=== PATIENT | female | born 1960 | race Caucasian/White ===

== ENCOUNTER 2017-03-09 23:23 | Emergency (ER) | payer MEDICARE, OTHER ==
[~2017-03-09] VITALS: Ht 129.5 cm; Wt 73.9 kg
[2017-03-10] MEDS ORDERED: ASPIRIN CHEWABLE 81 MG TABLET. PO ONE
--- NOTE | 2017-03-10 00:08 | PHYS DOC ---
Past Medical History Past Medical History: High Cholesterol Past Medical History Chronic pain-arthritis Past Surgical History: Cholecystectomy, Hysterectomy, Tonsillectomy Past Surgical History Gastric bypass; right rotator cuff surgery Smoking: Quit Greater Than 1 Year Social History Narrative: Chronic methadone use for pain management Adult General Chief Complaint Chief Complaint: CHEST PAIN HPI HPI Patient is a 56 year old female who presents with chest pain. She lives in [place]. She states she was there only about 20 minutes playing [employer] when she was losing. She went out to her truck got in an argument with her spouse on the phone. She decided just to wait a little bit before she took off the drive back to [place] because she was very mad. She states she fell asleep at 22:10 PM and awakened at 2245 PM with mid chest pain. The pain is sharp, burning. It was attempted initially a 10 but now it is a 0. Did not take any medications for it. Did not radiate. No dizziness or syncope. No nausea vomiting. Some shortness of air with the pain. No recent long distance travel but does travel between [place] in [place] frequently. 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 She has a primary care doctor [place] and she states she had a stress test done one year ago. She does have positive family history for heart disease. Review of Systems Review of Systems Constitutional: Denies fever or chills Eyes: Denies change in visual acuity, redness, or eye pain HENT: Denies nasal congestion or sore throat Respiratory: Denies cough ; some shortness of breath with pain earlier-resolved Cardiovascular: SEe HPI GI: Denies abdominal pain, nausea, vomiting, bloody stools or diarrhea : Denies dysuria or hematuria Musculoskeletal: chronic back pain & joint pain. No calf pain, swelling, tenderness. Integument: Denies rash or skin lesions Neurologic: Denies headache, focal weakness or sensory changes Current Medications Current Medications Current Medications Medications (Trade) Dose Ordered Sig/Pradip Start Time Stop Time Status Last Admin Dose Admin Aspirin (Children'S Aspirin) 324 mg 1X ONCE 03/10/17 00:00 03/10/17 00:01 DC 03/09/17 23:58 324 MG Allergies Allergies Allergies Coded Allergies Type Severity Reaction Last Updated Verified Penicillins Allergy Unknown 03/09/17 Yes Physical Exam Physical Exam Constitutional: Well developed, well nourished, no acute distress, non-toxic appearance. HENT: Normocephalic, atraumatic, bilateral external ears normal, oropharynx moist, no oral exudates, nose normal. Eyes: PERRLA, EOMI, conjunctiva normal, no discharge. Neck: Normal range of motion, no tenderness, supple, no stridor. Cardiovascular:Heart rate regular rhythm, no murmur Lungs & Thorax: Bilateral breath sounds clear to auscultation Abdomen: Bowel sounds normal, soft, no tenderness, no masses, no pulsatile masses. Skin: Warm, dry, no erythema, no rash. Back: No tenderness, no CVA tenderness. Extremities: No tenderness, no cyanosis, no clubbing, ROM intact, no edema. Neurologic: Alert and oriented X 3, normal motor function, normal sensory function, no focal deficits noted. [] Psychologic: Affect normal, judgement normal, mood normal. Current Patient Data Vital Signs 127/62, 67, 99% SAT AT 0050 116/60; 62, SAT 100% ON ARRIVAL Lab Values Laboratory Tests Test 03/10/17 00:05 White Blood Count 7.5 x10^3/uL (4.0-11.0) Red Blood Count 4.29 x10^6/uL (3.50-5.40) Hemoglobin 12.3 g/dL (12.0-15.5) Hematocrit 37.8 % (36.0-47.0) Mean Corpuscular Volume 88 fL (79-100) Mean Corpuscular Hemoglobin 29 pg (25-35) Mean Corpuscular Hemoglobin Concent 33 g/dL (31-37) Red Cell Distribution Width 14.6 % (11.5-14.5) H Platelet Count 285 x10^3/uL (140-400) Neutrophils (%) (Auto) 58 % (31-73) Lymphocytes (%) (Auto) 32 % (24-48) Monocytes (%) (Auto) 8 % (0-9) Eosinophils (%) (Auto) 2 % (0-3) Basophils (%) (Auto) 1 % (0-3) Neutrophils # (Auto) 4.3 x10^3uL (1.8-7.7) Lymphocytes # (Auto) 2.4 x10^3/uL (1.0-4.8) Monocytes # (Auto) 0.6 x10^3/uL (0.0-1.1) Eosinophils # (Auto) 0.1 x10^3/uL (0.0-0.7) Basophils # (Auto) 0.1 x10^3/uL (0.0-0.2) D-Dimer (Lindy) 0.45 ug/mlFEU (0.00-0.50) Sodium Level 142 mmol/L (136-145) Potassium Level 3.5 mmol/L (3.5-5.1) Chloride Level 105 mmol/L (98-107) Carbon Dioxide Level 30 mmol/L (21-32) Anion Gap 7 (6-14) Blood Urea Nitrogen 10 mg/dL (7-20) Creatinine 1.0 mg/dL (0.6-1.0) Estimated GFR (Cockcroft-Gault) 57.8 Glucose Level 93 mg/dL (70-99) Calcium Level 8.7 mg/dL (8.5-10.1) Troponin I Quantitative < 0.017 ng/mL (0.000-0.055) YB-Wpf-Z-Type Natriuretic Peptide 74 pg/mL (0-124) Lipase 179 U/L (73-393) Laboratory Tests 03/10/17 00:05 Laboratory Tests 03/10/17 00:05 EKG EKG EKG interpreted by myself at 2330 PM. Normal sinus rhythm, rate 63, nonspecific ST changes. No ST elevation. Radiology/Procedures Radiology/Procedures Chest x-ray interpreted by myself at 0015 AM. Normal cardiac silhouette, normal lung fajardo, no pleural effusions, no infiltrate, no pneumothorax. Course & Med Decision Making Course & Med Decision Making Differential diagnosis for chest pain includes but is not limited to: Pericarditis, myocarditis, endocarditis, pneumothorax, pneumonia, aortic dissection, esophageal spasm, esophagitis, peptic ulcer disease, acute coronary syndrome, mediastinitis, Boerhaave syndrome, musculoskeletal chest wall pain, costochondritis, intercostal strain, rib fracture, pulmonary contusion, pneumonitis, pleural effusion, pericardial effusion, pericardial tamponode, and pleurisy. Evaluated patient upon arrival. She has very concerning risk factors. She has no chest pain at present. Was given aspirin 324 mg to chew upon arrival here. PERC Criteria Assessment: Age > 50: YES HR > 100: No 02 < 95%: No H/o DVT/PE: No Recent trauma/surgery: No Hemoptysis No Exogenous Estrogen: No Unilateral Leg swelling: No Pretest probability > 15%: No Less than 2% risk of PE. No further work up is necessary MACE Scoring: History: Highly suspicious (2 points); Moderately suspicious (1 point). Slightly suspicious (0 point). EKG: ST segment depression (2 points). Nonspecific repolarization disturbance ( 1 point). normal (0 point) Age: Greater than 65 (2 points), 65-45 (1 point); less than 45 years old (0 points). Risk factors:> 3 risk factors (2 points), 1-2 risk factors (one point), no risk factors (0 point). Troponin: > 2 times normal (2 points), 1-2 times normal (1 point) normal limits (0 point) Total score: ___5___ Score % pts MACE/n MACE Policy 0-3: 32% 1.9% 0.05% Discharge 4-6: 51% 413/3136 13% 1.3% Observation Risk management 7-10: 17% 518/1045 50% 2.8% Observation Treatment, CAGb 0100 am: I discussed the findings with the patient. My recognition was hospitalized admission, cardiac telemetry monitoring, repeat cardiac enzymes, cardiology consultation the morning. Patient refused admission. She understands the risks involved of sudden , coma, permanent disability. She declined my assistance in transferring her to her hometown [place]. She states she will contact her personal physician in the morning. Again I reiterated my concerns to her however she declines any further care and is leaving AGAINST MEDICAL ADVICE. Dragon Disclaimer Dragon Disclaimer This electronic medical record was generated, in whole or in part, using a voice recognition dictation system. Departure Departure Impression: Primary Impression: Chest pain Disposition: AGAINST MEDICAL ADVICE Referrals: UNKNOWN PCP NAME (PCP) Additional Instructions: SEE YOUR PHYSICIAN IN THE AM Problem Qualifiers Primary Impression: Chest pain Chest pain type: unspecified Qualified Codes: R07.9 - Chest pain, unspecified MELVIN PLUNKETT MD Mar 10, 2017 00:08
[2017-03-10 00:16] LABS: BASO # 0.1 x10^3/uL (0.0-0.2); BASO % 1 % (0-3); EOS % 2 % (0-3); HEMATOCRIT 37.8 % (36.0-47.0); HEMOGLOBIN 12.3 g/dL (12.0-15.5); LYMPH # 2.4 x10^3/uL (1.0-4.8); LYMPH % 32 % (24-48); MEAN CORPUSCULAR HEMOGLOBIN 29 pg (25-35); MEAN CORPUSCULAR HGB CONC 33 g/dL (31-37); MEAN CORPUSCULAR VOLUME 88 fL (79-100); MONO % 8 % (0-9); NEUT % 58 % (31-73); PLATELET COUNT 285 x10^3/uL (140-400); RED BLOOD COUNT 4.29 x10^6/uL (3.50-5.40); RED CELL DISTRIBUTION WIDTH 14.6 % (11.5-14.5); WHITE BLOOD COUNT 7.5 x10^3/uL (4.0-11.0)
[2017-03-10 00:26] LABS: CALCIUM 8.7 mg/dL (8.5-10.1); GFR 57.8; POTASSIUM 3.5 mmol/L (3.5-5.1)
[2017-03-10 01:09] VITALS: BP 117/66
--- NOTE | 2017-03-10 06:06 | EKG ---
[facility] [address] [place] [address] Test Date: 2017-03-09 Test Time: 23:30:33 Pat Name: MELVIN CHENG Department: Room: Gender: F Underwriting Analyst: : 1960 Requested By: MELVIN PLUNKETT Order Number: [id number] Reading MD: Mauricio Curtis Measurements Intervals [place] Rate: 63 P: 56 CO: 152 QRS: 24 QRSD: 80 T: 38 QT: 386 QTc: 398 Interpretive Statements SINUS RHYTHM Electronically Signed On 03-14-2017 7:16:46 CDT by Mauricio Curtis
--- NOTE | 2017-03-10 07:43 | RAD ---
Chest x-ray Indication: Chest pain Technique: Portable AP upright chest plane from Comparison: None Findings: Heart is normal in size. Calcified granuloma is seen in the left upper lobe. Lungs are clear. No pneumothorax or pleural effusion. Suggestion of healed fractures of the bilateral distal clavicles. Visualized bony thorax is within normal limits. Impression: No acute cardiopulmonary process.
== END 2017-03-10 01:15 | disposition left against medical advice (07) ==
LOC: ER 23:23
DX: R07.9 Chest pain, unspecified (principal); R06.02 Shortness of breath; Z53.21 Procedure and treatment not carried out due to patient leaving prior to being seen by health care provider; E78.00 Pure hypercholesterolemia, unspecified; Z90.49 Acquired absence of other specified parts of digestive tract; Z90.710 Acquired absence of both cervix and uterus; Z98.84 Bariatric surgery status; Z87.891 Personal history of nicotine dependence
CPT/HCPCS: 36415; 71010; 80048; 83690; 83880; 84484; 85025; 85379; 93005; 99285-25